=== PATIENT | female | born 1990 | race Caucasian/White ===

== ENCOUNTER 2024-09-27 18:25 | Emergency (ER) | payer SELFPAY ==
[2024-09-27] MEDS: Ibuprofen 400 MG Tab PO ONE (19:25)
[2024-09-27] MEDS: Acetaminophen 500 MG Tab PO ONE (19:25)
== END 2024-09-27 20:15 | disposition home or self-care (01) ==
LOC: JP.ED 18:25
DX: S69.91XA Unspecified injury of right wrist, hand and finger(s), initial encounter (principal); Z90.49 Acquired absence of other specified parts of digestive tract; W23.0XXA Caught, crushed, jammed, or pinched between moving objects, initial encounter; Y93.89 Activity, other specified; Y92.9 Unspecified place or not applicable
CPT/HCPCS: 73130-26-RT; 73130-RT; 99283; A9270-GY